=== PATIENT | male | born 1970 | race Caucasian/White ===

== ENCOUNTER 2016-05-17 00:02 | Emergency (ER) | payer SELFPAY ==
[~2016-05-17] VITALS: Ht 157.5 cm; Wt 69.6 kg
[2016-05-17 00:46] VITALS: BP 133/85
--- NOTE | 2016-05-17 01:47 | NUR ---
PATIENT TO BED 1.
--- NOTE | 2016-05-17 01:48 | NUR ---
45Y M BIB SELF C/O 2 NIGHTS OF AB PAIN IN LUQ AND FEELING NERVOUS . PT DENIES N/V/D; SKIN IS PINK/WARM/DRY; AAOX4 WITH EVEN AND STEADY GAIT; LUNGS CLEAR BL; HR EVEN AND REGULAR; PT DENIES ANY FEVER, CP, OR COUGH AT THIS TIME; PATIENT STATES PAIN OF 6/10 AT THIS TIME; VSS; PATIENT POSITIONED FOR COMFORT; HOB ELEVATED; BEDRAILS UP X2; BED DOWN. ER MD MADE AWARE OF PT STATUS.
--- NOTE | 2016-05-17 03:27 | NUR ---
Patient being evaluated by physician at bedside.
--- NOTE | 2016-05-17 03:42 | NUR ---
Patient discharged with v/s stable. Written and verbal after care instructions given and explained. Patient verbalized understanding. Ambulatory with steady gait. All questions addressed prior to discharge. Advised to follow up with PMD.
[2016-05-17 03:43] VITALS: BP 131/75
== END 2016-05-17 03:42 | disposition home or self-care (01) ==
LOC: MED 00:02
DX: R10.12 Left upper quadrant pain (principal); I10 Essential (primary) hypertension

== ENCOUNTER 2017-06-25 23:29 | Emergency (ER) | payer OTHER ==
[~2017-06-25] VITALS: Ht 160 cm; Wt 65.8 kg
[2017-06-25 23:39] VITALS: BP 178/100
--- NOTE | 2017-06-25 23:42 | NUR ---
PT AMBULATED TO CHAIR A
[2017-06-25] MEDS ORDERED: ATOR10TA PO (23:43)
[2017-06-25] MEDS ORDERED: METF500T PO (23:43)
[2017-06-25] MEDS ORDERED: ORE25 PO (23:43)
[2017-06-25] MEDS ORDERED: cloNIDine 0.1 MG TAB PO ONE (23:45)
--- NOTE | 2017-06-25 23:46 | NUR ---
PATIENT PRESENTS TO ED WITH C/O DIZZINESS AND FEELING SHAKEY. PT STATES HAS NOT TAKEN MEDS FOR 1 MONTH. NEEDS MED REFILL. MED HX: DM/HTN/HIGH CHOLESTEROL PT DENIES N/V/D; SKIN IS PINK/WARM/DRY; AAOX4 WITH EVEN AND STEADY GAIT; LUNGS CLEAR BL; HR EVEN AND REGULAR; PT DENIES ANY FEVER, CP, SOB, OR COUGH AT THIS TIME; PATIENT STATES PAIN OF 0/10 AT THIS TIME; VSS; PATIENT POSITIONED FOR COMFORT; HOB ELEVATED; BEDRAILS UP X2; BED DOWN. ER MD MADE AWARE OF PT STATUS.
[2017-06-26 00:40] VITALS: BP 141/82
--- NOTE | 2017-06-26 00:40 | NUR ---
Patient discharged with v/s stable. Written and verbal after care instructions given and explained. Patient alert, oriented and verbalized understanding of instructions. Ambulatory with steady gait. All questions addressed prior to discharge. ID band removed. Patient advised to follow up with PMD. Rx of HYDROCHLOROTHIAZIDE 25MG, ATORVASTATIN 10MG, METFORMIN 500MG given. Patient educated on indication of medication including possible reaction and side effects. Opportunity to ask questions provided and answered.
== END 2017-06-26 00:40 | disposition home or self-care (01) ==
LOC: MED 23:29
DX: I10 Essential (primary) hypertension (principal); E11.9 Type 2 diabetes mellitus without complications; Z76.0 Encounter for issue of repeat prescription; Z79.84 Long term (current) use of oral hypoglycemic drugs; Z79.899 Other long term (current) drug therapy
CPT/HCPCS: 82948; 99283

== ENCOUNTER 2017-10-26 04:43 | Emergency (ER) | payer OTHER ==
[~2017-10-26] VITALS: Ht 160 cm; Wt 72.6 kg
[~2017-10-26 04:43] MED LIST: ATOR10TA PO; METF500T PO; ORE25 PO
[2017-10-26 04:46] VITALS: BP 131/75
--- NOTE | 2017-10-26 04:47 | NUR ---
TO BED #7 AMB, REPORT GIVEN TO ESTELA CRAMER
--- NOTE | 2017-10-26 04:58 | NUR ---
PATIENT PRESENTS TO ED WITH LEFT ARM NUMBNESS X4 DAYS. PATIENT STATES HE HAS PAIN 5/10 IN HIS LEFT ARM. PATIENT STATES HE WAS SEEN BY HIS PCP AND HAS A FUTURE DATE IN OCTOBER FOR XRAY, BUT THE FOLLOWUP DATE IS TOO FAR AWAY TO BE SEEN. PATIENT DENIES ANY CHEST PAIN AT THIS TIME. NO SIGNS OR SYMPTOMS OF ACUTE DISTRESS NOTED AT THIS TIME. ER MD MADE AWARE OF PATIENT STATUS. WILL CONTINUE TO MONITOR.
--- NOTE | 2017-10-26 07:13 | NUR ---
US AT BEDSIDE
--- NOTE | 2017-10-26 07:20 | NUR ---
GOT REPORT FROM ESTELA CRAMER
--- NOTE | 2017-10-26 07:30 | NUR ---
PT RESTING IN BED WITH ULTRASOUND AT BEDSIDE
[2017-10-26] MEDS ORDERED: KETOROLAC 60 MG/2 ML VIAL IM ONE (10:20)
[2017-10-26 10:43] VITALS: BP 125/73
--- NOTE | 2017-10-26 10:43 | NUR ---
Patient discharged with v/s stable. Written and verbal after care instructions given and explained. Patient alert, oriented and verbalized understanding of instructions. Ambulatory with steady gait. All questions addressed prior to discharge. ID band removed. Patient advised to follow up with PMD. Rx of voltaren xr given. Patient educated on indication of medication including possible reaction and side effects. Opportunity to ask questions provided and answered.
== END 2017-10-26 10:43 | disposition home or self-care (01) ==
LOC: MED 04:43
DX: E11.40 Type 2 diabetes mellitus with diabetic neuropathy, unspecified (principal); I10 Essential (primary) hypertension; E78.5 Hyperlipidemia, unspecified; Z79.84 Long term (current) use of oral hypoglycemic drugs
CPT/HCPCS: 93971; 96372; 99284; J1885; Q0092

== ENCOUNTER 2018-08-09 18:15 | Emergency (ER) | payer BC ==
[~2018-08-09] VITALS: Ht 160 cm; Wt 65.8 kg
[2018-08-09 18:48] VITALS: BP 139/74
--- NOTE | 2018-08-09 18:58 | NUR ---
PT AMBULATORY TO BED 7
--- NOTE | 2018-08-09 19:15 | NUR ---
PT CAME IN WITH C/O RASH X 3 DAYS. PT STATED HE STARTED WITH RASH ON UPPER EXTREMETIES LEFT SIDE OF NECK, RASH PROGRESSED TO RIGHT ARM/ELBOW AND THEN TO LEFT LEG. PT STATES RASH IS ITCHY. RASH IS RAISED AND HAS SOME SWEELING AND REDNESS. NO DRAINAGE NOTED. PT IS A/OX4 ACKNOW[address] PLACE, PERSON AND TIME. PT STATES HE IS 0/10 AT THIS TIME. ER MD MADE AWARE OF STATUS. SAFETY MEASURES IN PLACE. BED RAILS UP X 1.
--- NOTE | 2018-08-09 19:24 | NUR ---
Dr. Curry evaluating patient at bedside.
[2018-08-09] MEDS ORDERED: SULFAMETH/TRIMETH DS 800/160MG 1 TAB PO ONE (19:35)
[2018-08-09] MEDS ORDERED: predniSONE 20 MG TAB PO ONE (19:35)
[2018-08-09 20:10] VITALS: BP 134/70
--- NOTE | 2018-08-09 20:10 | NUR ---
Patient discharged with v/s stable. Written and verbal after care instructions given and explained. Patient alert, oriented and verbalized understanding of instructions. Ambulatory with steady gait. All questions addressed prior to discharge. ID band removed. Patient advised to follow up with PMD. Rx of PREDNISONE, BACTRIM, BENADRYL given. Patient educated on indication of medication including possible reaction and side effects. Opportunity to ask questions provided and answered.
== END 2018-08-09 20:10 | disposition home or self-care (01) ==
LOC: MED 18:15
DX: T63.481A Toxic effect of venom of other arthropod, accidental (unintentional), initial encounter (principal); L03.116 Cellulitis of left lower limb; L03.115 Cellulitis of right lower limb; L03.114 Cellulitis of left upper limb; L03.113 Cellulitis of right upper limb; E11.9 Type 2 diabetes mellitus without complications; I10 Essential (primary) hypertension; E78.5 Hyperlipidemia, unspecified; Z79.84 Long term (current) use of oral hypoglycemic drugs; Z79.899 Other long term (current) drug therapy; Y92.89 Other specified places as the place of occurrence of the external cause
CPT/HCPCS: 99283; J7512

== ENCOUNTER 2018-09-14 18:02 | Emergency (ER) | payer BC ==
[~2018-09-14] VITALS: Ht 165.1 cm; Wt 66.7 kg
[2018-09-14] MEDS ORDERED: IBUPROFEN 600 MG TAB PO ONE (18:10)
[2018-09-14 18:14] VITALS: BP 146/83
--- NOTE | 2018-09-14 18:16 | NUR ---
PT AMBULATED TO ER BED 03
[2018-09-14] MEDS ORDERED: KEFSUS PO (18:21)
--- NOTE | 2018-09-14 18:25 | NUR ---
PT C/O OF RASH ON ARMS AND LEGS WITH ITCHING SENSATION BUT NO PAIN. Pt was seen by his pmd for same s/s 1 week ago Cephalexin given. DENIES N/V/D; SKIN IS PINK/WARM/DRY with redish rash on arms and legs; AAOX4 WITH EVEN AND STEADY GAIT; PT DENIES ANY FEVER, CP, SOB, OR COUGH AT THIS TIME; PATIENT STATES PAIN OF 0/10 AT THIS TIME; VSS; PATIENT POSITIONED FOR COMFORT; HOB ELEVATED; BEDRAILS UP X1; BED DOWN. ER MD MADE AWARE OF PT STATUS.
[2018-09-14 19:14] VITALS: BP 119/73
--- NOTE | 2018-09-14 19:15 | NUR ---
Patient discharged with v/s stable. Written and verbal after care instructions given and explained. Patient alert, oriented and verbalized understanding of instructions. Ambulatory with steady gait. All questions addressed prior to discharge. ID band removed. Patient advised to follow up with PMD. Rx of Loratadine, Benadryl, and Triamcinolone given. Patient educated on indication of medication including possible reaction and side effects. Opportunity to ask questions provided and answered.
== END 2018-09-14 19:15 | disposition home or self-care (01) ==
LOC: MED 18:02
DX: L25.9 Unspecified contact dermatitis, unspecified cause (principal); I10 Essential (primary) hypertension; E78.5 Hyperlipidemia, unspecified; Z79.899 Other long term (current) drug therapy
CPT/HCPCS: 99283

== ENCOUNTER 2018-10-07 18:12 | Emergency (ER) | payer BC ==
[~2018-10-07] VITALS: Ht 160 cm; Wt 69.0 kg
[~2018-10-07 18:12] MED LIST changes: +KEFSUS PO
[2018-10-07 18:22] VITALS: BP 125/71
--- NOTE | 2018-10-07 18:35 | NUR ---
PT BIB SELF TO THE ED WITH THE CHIEF C/O TINGLING PAIN ON BOTH TEMPORAL REGIONS FOR 2 HOURS. PT WAS SEEN BY DOCTOR IN [facility] LAST WEDNESDAY. TAKING LOSARTAN SINCE THEN. DENIES DIZZINESS. DENIES NAUSEA OR VOMITING. DENIES SOB OR CHEST PAIN. STATES HEADACHE OF 3/10 AT THIS TIME. VSS. MEDICAL HX: HTN, PRE DIABETES, CHOLESTEROL RX: LOSARTAN, ATROVASTATIN
--- NOTE | 2018-10-07 19:13 | NUR ---
REPORT GIVEN TO [employer] RN. PT STABLE.
--- NOTE | 2018-10-07 19:30 | NUR ---
RECEIVED REPORT FROM AM NURSE. PT LAYING IN BED, RR EVEN AND UNLABORED. PT DENIES HEADACHE/PAIN BUT REPORTS PARESTHESIA/TINGLING ON BL TEMPORAL REGIONS. AOX4, PERRLA [place], NEURO INTACT. ALL NEEDS MET AT THIS TIME.
--- NOTE | 2018-10-07 20:15 | NUR ---
DR GREEN AT BEDSIDE FOR MSE
--- NOTE | 2018-10-07 20:28 | NUR ---
PT LAYING IN BED, RR EVEN AND UNLABORED. DENIES ANY PAIN AT THIS TIME. VSS. ALL NEEDS MET.
--- NOTE | 2018-10-07 20:40 | NUR ---
PATIENT TAKEN TO CT WITH TECH VIA WHEELCHAIR.
--- NOTE | 2018-10-07 20:52 | NUR ---
PT BACK FROM CT
[2018-10-07 21:05] LABS: BASOPHILS # (AUTO) 0.1 K/uL (0.00-0.22); BASOPHILS % (AUTO) 0.7 % (0.0-2.0); EOSINOPHILS # (AUTO) 0.1 K/uL (0-0.4); EOSINOPHILS % (AUTO) 1.1 % (0.0-4.0); HEMATOCRIT 42.5 % (36-52); HEMOGLOBIN 14.6 g/dL (12.0-18.0); LYMPHOCYTES # (AUTO) 1.7 K/uL (2.0-11.5); LYMPHOCYTES % (AUTO) 20.7 % (20.5-51.1); MEAN CORPUSCULAR HEMOGLOBIN 30 pg (27-31); MEAN CORPUSCULAR HGB CONC 34 g/dL (33-37); MEAN CORPUSCULAR VOLUME 87.4 fL (80-94); MONOCYTES # (AUTO) 0.7 K/uL (0.8-1.0); MONOCYTES % (AUTO) 8.2 % (1.7-9.3); NEUTROPHILS # (AUTO) 5.8 K/uL (1.8-7.7); NEUTROPHILS % (AUTO) 69.3 % (42.2-75.2); PLATELET COUNT (AUTO) 321 K/uL (140-450); RED BLOOD CELL COUNT(AUTO) 4.86 MIL/uL (4.20-6.10); RED CELL DISTRIBUTION WIDTH 12.8 % (11.6-13.7); WHITE BLOOD COUNT (AUTO) 8.4 K/uL (4.8-10.8)
[2018-10-07 21:17] LABS: ALBUMIN 3.9 g/dL (3.4-5.0); ANION GAP 11.8 (8-16); CARBON DIOXIDE 29.1 mmol/L (21-32); CREATININE 1.1 mg/dL (0.7-1.3); POTASSIUM 3.9 mmol/L (3.5-5.1); TOTAL BILIRUBIN 0.5 mg/dL (0.0-1.0)
--- NOTE | 2018-10-07 22:12 | NUR ---
PT LAYING IN BED, RR EVEN AND UNLABORED. DENIES ANY PAIN, REPORTS INTERMITTENT BL TEMPORAL HEAD PARESTHESIA. VSS. ALL NEEDS MET.
--- NOTE | 2018-10-07 22:30 | NUR ---
DR GREEN AT BEDSIDE
[2018-10-07 22:31] VITALS: BP 129/63
== END 2018-10-07 22:31 | disposition home or self-care (01) ==
LOC: MED 18:12
DX: R42 Dizziness and giddiness (principal); I10 Essential (primary) hypertension; E78.5 Hyperlipidemia, unspecified; Z79.899 Other long term (current) drug therapy
CPT/HCPCS: 36415; 70450; 80053; 84484; 85025; 85651; 86140; 93005; 99284

== ENCOUNTER 2018-12-28 07:40 | Emergency (ER) | payer BC ==
[~2018-12-28] VITALS: Ht 160 cm; Wt 68.9 kg
[2018-12-28 07:45] VITALS: BP 133/76
[2018-12-28] MEDS ORDERED: BENA20TA PO (07:54)
[2018-12-28 09:01] VITALS: BP 133/76
== END 2018-12-28 09:01 | disposition home or self-care (01) ==
LOC: MED 07:40
DX: R20.0 Anesthesia of skin (principal); I10 Essential (primary) hypertension; E78.5 Hyperlipidemia, unspecified; Z79.899 Other long term (current) drug therapy
CPT/HCPCS: 71045; 99283; Q0092

== ENCOUNTER 2020-01-20 11:14 | Emergency (ER) | payer BC ==
[~2020-01-20] VITALS: Ht 160 cm; Wt 68.0 kg
[~2020-01-20 11:14] MED LIST changes: -ATOR10TA PO; +BENA20TA PO; -KEFSUS PO; -METF500T PO; -ORE25 PO
[2020-01-20 11:22] VITALS: BP 144/81
--- NOTE | 2020-01-20 11:26 | NUR ---
PATIENT PRESENTS TO ED WITH CHEST PAIN SINCE YESTERDAY . PT STATES HE HAD AN ABNORMAL EKG DONE YESTERDAY. SLIGHT PAIN IN CHEST TODAY . DENIES N/V/D; SKIN IS PINK/WARM/DRY; AAOX4 WITH EVEN AND STEADY GAIT; LUNGS CLEAR BL; HR EVEN AND REGULAR; PT DENIES ANY FEVER, SOB, OR COUGH AT THIS TIME; PATIENT STATES PAIN OF 2/10 AT THIS TIME; VSS; PATIENT POSITIONED FOR COMFORT; HOB ELEVATED; BEDRAILS UP X2; BED DOWN. ER MD MADE AWARE OF PT STATUS.
--- NOTE | 2020-01-20 11:48 | NUR ---
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 PT STATES HE IS NO LONGER HAVING CHEST PAINS AT THIS TIME. STRESSED IMPORTANCE OF GETTING HIS LABS AND APPOINTMENT WITH CARDIO.
[2020-01-20 11:49] VITALS: BP 118/62
== END 2020-01-20 11:48 | disposition home or self-care (01) ==
LOC: MED 11:14
DX: R07.89 Other chest pain (principal); I10 Essential (primary) hypertension; E78.5 Hyperlipidemia, unspecified; Z79.899 Other long term (current) drug therapy
CPT/HCPCS: 93005; 99283

== ENCOUNTER 2021-02-12 20:42 | Emergency (ER) | payer SELFPAY ==
[~2021-02-12] VITALS: Ht 157.5 cm; Wt 71.2 kg
[2021-02-12 21:05] VITALS: BP 183/99
--- NOTE | 2021-02-12 21:43 | NUR ---
PT TAKEN TO BED 7
--- NOTE | 2021-02-12 22:40 | NUR ---
PATIENT STATES HE DID NOT TAKE HIS PRESCRIBED HYPERTENSION MEDICATIONS THIS MORNING, PATIENT STATES HIS BP AT HOME WAS 178/90 AT 1999. SATES HE TOOK HIS PRESCRIBED HTN MEDICATION BUT BP HAS NOT DECREASED. PATIENT IN STABLE CONDITION, IN NO APPARENT ACUTE DISTRESS. WILL CONTINUE TO MONITOR.
--- NOTE | 2021-02-12 22:42 | NUR ---
Dr. Tom examining patient.
[2021-02-12] MEDS ORDERED: PRED20TA5 PO (22:46)
[2021-02-12] MEDS ORDERED: IBUP-2213 PO (22:46)
[2021-02-12 23:05] VITALS: BP 183/99
--- NOTE | 2021-02-12 23:05 | NUR ---
Patient discharged with v/s stable. Written and verbal after care instructions given and explained. Patient alert, oriented and verbalized understanding of instructions. Ambulatory with steady gait. All questions addressed prior to discharge. ID band removed. Patient advised to follow up with PMD. Rx of PREDNISOLONE AND IBUPROFEN given. Patient educated on indication of medication including possible reaction and side effects. Opportunity to ask questions provided and answered.
== END 2021-02-12 23:00 | disposition home or self-care (01) ==
LOC: MED 20:42
DX: J02.9 Acute pharyngitis, unspecified (principal); I10 Essential (primary) hypertension; E78.5 Hyperlipidemia, unspecified; Z79.899 Other long term (current) drug therapy
CPT/HCPCS: 99283